=== PATIENT | female | born 1965 | race Caucasian/White ===

== ENCOUNTER 2025-01-22 16:04 | Emergency (ER) | payer OTHER ==
[2025-01-22 16:18] VITALS: BP 122/75; PULSE 86; RESP 19; TEMP 98.6; BMI 24.9
[2025-01-22] MEDS ORDERED: DIPHTH,PERTUSS(ACELL),TET 0.5 ML DISP.SYRIN IM ONE (17:56)
[2025-01-22] MEDS ORDERED: IBUPROFEN 600 MG TABLET (FP) PO ONE (18:15)
[2025-01-22] MEDS: IBUPROFEN 600 MG TABLET (FP) PO ONE (18:18)
== END 2025-01-22 18:50 | disposition home or self-care (01) ==
LOC: JERFT 16:04
PROC: 0HQGXZZ Repair Left Hand Skin, External Approach (ICD-10-PCS; principal; 2025-01-22)
DX: S61.217A Laceration without foreign body of left little finger without damage to nail, initial encounter (principal); W25.XXXA Contact with sharp glass, initial encounter; Y93.G1 Activity, food preparation and clean up
CPT/HCPCS: 99283-25

== ENCOUNTER 2025-02-04 16:20 | Emergency (ER) | payer OTHER ==
[2025-02-04 16:29] VITALS: BP 124/70; PULSE 69; RESP 18; TEMP 98.5; BMI 25.7
== END 2025-02-04 17:49 | disposition home or self-care (01) ==
LOC: JERFT 16:20
DX: L02.512 Cutaneous abscess of left hand (principal); Z48.02 Encounter for removal of sutures
CPT/HCPCS: 99283-25